=== PATIENT | female | born 1965 | race Caucasian/White ===

== ENCOUNTER 2020-01-29 07:25 | Emergency (ER) | payer BC ==
[~2020-01-29] VITALS: Ht 157 cm; Wt 109.0 kg
[2020-01-29 07:30] VITALS: BP 163/76
[2020-01-29] MEDS ORDERED: HYDROcodone/APAP 5 MG/325 MG (LORTAB) TAB PO ONE (08:00)
--- NOTE | 2020-01-29 08:15 | ED Lower Extremity ---
General Chief Complaint: Lower Extremity Stated Complaint: L KNEE PAIN Nursing Triage Note: PT CO OF L KNEE PAIN, STATES FELT KNEE POP YESTERDAY WHEN PULLING DOWN GARAGE DOOR RATES PAIN 07/10 Nursing Sepsis Screen: No Definite Risk Source: patient Exam Limitations: no limitations History of Present Illness Date Seen by Provider: Jan 29, 2020 Time Seen by Provider: 07:33 Initial Comments This 54-year-old woman presents to the emergency room by private vehicle with complaints of pain from the knee down through her left lower leg for about 2 weeks. She has had some mild swelling and erythema associated with it. Last night she was pulling down her garage door when she felt a sudden pop in the knee followed by intense pain. She has had difficulty with ambulation since. Just reports recent pain and catching or giving out with ambulation. She denies any prior injury to that leg. She took aspirin and Tylenol early this morning. Allergies and Home Medications Allergies Coded Allergies: No Known Drug Allergies (Unverified , 04/15/14) Home Medications Hydrocodone/Acetaminophen 1 Each Tablet, 1 EACH PO Q4H PRN for PAIN-MODERATE (5- 7) Prescribed by: DEANGELO GROVES on 01/29/20 0836 Patient Home Medication List Home Medication List Reviewed: Yes Review of Systems Constitutional: no symptoms reported EENTM: no symptoms reported Respiratory: no symptoms reported Cardiovascular: no symptoms reported Gastrointestinal: no symptoms reported Genitourinary: no symptoms reported : No Musculoskeletal: see HPI Skin: see HPI Psychiatric/Neurological: No Symptoms Reported Past Gbdepsz-Ciuiiu-Jlbsay Hx Past Med/Social Hx: Reviewed Nursing Past Med/Soc Hx Patient Social History Alcohol Use: Rarely Uses Recreational Drug Use: No Smoking Status: Former Smoker Recent Foreign Travel: No Contact w/Someone Who Travel: No Recent Infectious Disease Expo: No Recent Hopitalizations: No Past Medical History Surgeries: Yes Thyroidectomy Respiratory: No Cardiac: No Neurological: No : No Genitourinary: No Gastrointestinal: No Musculoskeletal: No Endocrine: No HEENT: No Cancer: No Psychosocial: No Integumentary: No Physical Exam Vital Signs Vital Signs - First Documented 01/29/20 07:30 Temp 36.9 Pulse 78 Resp 18 B/P (MAP) 163/76 (105) Pulse Ox 99 Capillary Refill : Less Than 3 Seconds Height, Weight, BMI Height: '" Weight: lbs. oz. kg; 44.00 BMI Method: General Appearance: WD/WN, mild distress HEENT: normal ENT inspection Neck: normal inspection Cardiovascular: regular rate, rhythm, no murmur Respiratory: lungs clear, normal breath sounds, no respiratory distress Legs: left leg pain, left leg soft tissue tenderness (left calf), left leg other (mild erythema of the left lower extremity) Knees: left knee pain, left knee swelling, left knee other (pain with range of motion. Mild effusion.) Ankles: left ankle non-tender, left ankle normal inspection, left ankle normal range of motion, left ankle no evidence of injury Feet: left foot non-tender, left foot normal inspection, left foot normal range of motion, left foot no evidence of injury, left foot other (strong pedal pulse) Neurologic/Tendon: normal sensation, normal motor functions Neurologic/Psychiatric: moveman II-XII nml as tested, no motor/sensory deficits, alert, normal mood/affect, oriented x 3 Skin: warm/dry, other (minimal erythema to the left lower leg) Progress/Results/Core Measures Results/Orders My Orders Orders - DEANGELO LAU MD Hydrocodone/Apap 5/325 Tablet (Lortab 5 (01/29/20 08:00) Knee, Left, 3 Views (01/29/20 07:47) Us Venous Lower Ext Lt (01/29/20 07:47) Medications Given in ED Current Medications Medications Dose Ordered Sig/Milad Route Start Time Stop Time Status Last Admin Dose Admin Acetaminophen/ Hydrocodone Bitart 1 tab ONCE ONCE PO 01/29/20 08:00 01/29/20 08:01 DC 01/29/20 07:52 1 TAB Vital Signs/I&O 01/29/20 07:30 Temp 36.9 Pulse 78 Resp 18 B/P (MAP) 163/76 (105) Pulse Ox 99 Blood Pressure Mean: 105 Diagnostic Imaging Diagonstic Imaging: Xray Plain Films/CT/US/NM/MRI: knee Comments Left knee x-ray viewed by me and report reviewed. See report below: NAME: JESSICA BROWN [facility] REC#: [id number] PT STATUS: REG ER : 1965 PHYSICIAN: DEANGELO LAU MD ADMIT DATE: 01/29/20/ER Draft Date of Exam:01/29/20 KNEE, LEFT, 3 VIEWS HISTORY: Pain in left knee. [place] a popping sensation. TECHNIQUE: 3 views of the left knee. COMPARISON: None FINDINGS: No acute fracture or dislocation is seen in the left knee. Alignment appears normal. There is minimal joint space loss in the left knee. There is a small left knee joint effusion. IMPRESSION: 1.. Small left knee joint effusion with no acute fracture seen. If there is clinical concern for internal derangement consider nonemergent MRI for further evaluation. Dictated on workstation # [id number] Dict: 01/29/20817 Trans: 01/29/20819 CV [id number] Interpreted by: BETH CAMARILLO MD Departure Impression Primary Impression: Left knee pain Qualified Codes: M25.562 - Pain in left knee Additional Impression: Effusion, left knee Disposition: 01 HOME, SELF-CARE Condition: Improved Departure-Patient Inst. Decision time for Depature: 08:31 Referrals: SIMRAN ROME DO (PCP/Family) Primary Care Physician SERINA MORELAND MD, MICHAEL P MD Patient Instructions: How to Use Crutches, Knee Pain, Meniscal Tear Add. Discharge Instructions: You may continue using a knee brace and/or an Earnest wrap for compression and support. You may use crutches as needed if pain does not allow walking. Follow-up with your primary care provider and/or an orthopedic doctor as soon as possible. A list of orthopedic providers as below. Further evaluation of your knee with MRI may be necessary for specific diagnosis. Elevation, compression, and 20 minute intervals of icing it may help reduce pain and swelling. You may use ibuprofen up to 600 mg every 6 hours as needed for pain. Add hydrocodone for pain not controlled by ibuprofen. Take ibuprofen with food or milk to avoid stomach irritation. Return to care if you have worsening symptoms despite following these recommendations. All discharge instructions reviewed with patient and/or family. Voiced understanding. Scripts Hydrocodone/Acetaminophen (Hydrocodone-Acetamin 5-325 mg) 1 Each Tablet 1 EACH PO Q4H PRN for PAIN-MODERATE (5-7), #20 TAB Prov: DEANGELO LAU MD 01/29/20 Work/School Note: Work Release Form Date Seen in the Emergency Department: Jan 29, 2020 Return to Work: Jan 29, 2020 Other Restrictions Listed Below: Pain may limit use of left knee. May need crutches and pain medications. Copy Copies To 1: SIMRAN ROME JOSHUA T MD Jan 29, 2020 08:15
--- NOTE | 2020-01-29 08:21 | Diagnostic Imaging Report ---
HISTORY: Pain in left knee. [place] a popping sensation. TECHNIQUE: 3 views of the left knee. COMPARISON: None FINDINGS: No acute fracture or dislocation is seen in the left knee. Alignment appears normal. There is minimal joint space loss in the left knee. There is a small left knee joint effusion. IMPRESSION: 1.. Small left knee joint effusion with no acute fracture seen. If there is clinical concern for internal derangement consider nonemergent MRI for further evaluation. Dictated by: Dictated on workstation # [id number]
[2020-01-29] MEDS ORDERED: HYDR-83 PO (08:35)
--- NOTE | 2020-01-29 09:17 | Diagnostic Imaging Report ---
PROCEDURE: US left lower extremity venous. TECHNIQUE: Multiple real-time grayscale images were obtained over the left lower extremity in various projections. Additional duplex Doppler and color Doppler images were also obtained. INDICATION: Left knee pain. FINDINGS: Color Doppler imaging shows normal blood flow throughout the venous system from the external iliac vein to the ankle. Calf compression showed normal augmentation of flow at the popliteal level. No evidence of popliteal cyst. IMPRESSION: Negative left lower extremity venous ultrasound for thrombosis. Dictated by: Dictated on workstation # [id number]
== END 2020-01-29 08:38 | disposition home or self-care (01) ==
LOC: EDUNIT# 07:25 → ER 07:26
DX: M25.562 Pain in left knee (principal); M25.469 Effusion, unspecified knee; Z87.891 Personal history of nicotine dependence
CPT/HCPCS: 73562

== ENCOUNTER 2020-06-19 14:06 | Outpatient (RCR) | payer BC ==
[2020-06-18 09:45] LABS: ABSOLUTE RETIC # 87 10e9/L (24-90); BASOPHILS % (AUTO) 1 % (0-10); EOSINOPHILS # (AUTO) 0.2 10^3/uL (0.0-0.3); EOSINOPHILS % (AUTO) 3 % (0-10); HEMATOCRIT 28 % (35-52); HEMOGLOBIN 7.7 G/DL (11.5-16.0); LYMPHOCYTES # (AUTO) 1.4 X 10^3 (1.0-4.0); LYMPHOCYTES % (AUTO) 16 % (12-44); MEAN CORPUSCULAR HEMOGLOBIN 18 PG (25-34); MEAN CORPUSCULAR HGB CONC 27 G/DL (32-36); MEAN CORPUSCULAR VOLUME 66 FL (80-99); MEAN PLATELET VOLUME 9.2 FL (7.4-10.4); MONOCYTES # (AUTO) 0.8 X 10^3 (0.0-1.0); MONOCYTES % (AUTO) 9 % (0-12); NEUTROPHILS # (AUTO) 6.3 X 10^3 (1.8-7.8); NEUTROPHILS % (AUTO) 73 % (42-75); PLATELET COUNT 360 10^3/uL (130-400); RETICULOCYTE % 2.05 % (0.50-2.40); WHITE BLOOD COUNT 8.7 10^3/uL (4.3-11.0)
[2020-06-18 10:20] LABS: ANISOCYTOSIS MODERATE; BASOPHILS % (MANUAL) 1 %; EOSINOPHILS % (MANUAL) 4 %; HYPOCHROMASIA MODERATE; LYMPHOCYTES % (MANUAL) 18 %; MICROCYTOSIS MARKED; MONOCYTES % (MANUAL) 6 %; NEUTROPHILS % (MANUAL) 71 %; POIKILOCYTOSIS SLIGHT; POLYCHROMASIA SLIGHT
[2020-06-18 10:21] LABS: STOMATOCYTES SLIGHT
[~2020-06-19 14:06] MED LIST: ACHD5005 PO
== END 2020-09-16 | disposition home or self-care (01) ==
LOC: LAB 14:06
PROVIDERS: ATTEND Family Medicine
DX: D64.9 Anemia, unspecified (principal)
CPT/HCPCS: 36415; 82274; 82728; 85007; 85027; 85045

== ENCOUNTER 2021-09-09 12:14 | Outpatient (CLI) | payer BC ==
[~2021-09-09] VITALS: Ht 167.7 cm; Wt 106.0 kg
[2021-09-09 12:00] VITALS: BP 136/73
[2021-09-09] MEDS ORDERED: NS IV 500 ML 500 ML IV ONE (12:45)
[2021-09-09] MEDS ORDERED: ACETAMINOPHEN 500 MG TAB (TYLENOL) PO ONE (12:45)
[2021-09-09] MEDS ORDERED: diphenhydrAMINE 25 MG TAB (BENADRYL) PO ONE (12:45)
[2021-09-09] MEDS ORDERED: LEVO125C4 PO (13:00)
[2021-09-09 13:32] VITALS: BP 136/73
[2021-09-09 13:52] VITALS: BP 134/69
[2021-09-09 14:07] VITALS: BP 138/64
[2021-09-09 16:30] VITALS: BP 140/64
== END 2021-09-09 16:35 ==
LOC: SDC 12:14
PROVIDERS: ATTEND Family Medicine
DX: D64.9 Anemia, unspecified (principal)
CPT/HCPCS: 36430; 86850; 86900; 86901; 86920; P9016

== ENCOUNTER 2021-09-12 09:06 | Emergency (ER) | payer BC ==
[~2021-09-12 09:06] MED LIST changes: +LEVO125C4 PO
--- NOTE | 2021-09-12 09:36 | ED General ---
General Stated Complaint: IRREGULAR LABS Source of Information: Patient Exam Limitations: No Limitations ([employer] STUDENT) History of Present Illness Date Seen by Provider: Sep 12, 2021 Time Seen by Provider: 09:25 Initial Comments Cadence is a 55 yo F with a history of asthma and thyroid cancer who presents to the ED today for anemia. Pt states she had labs drawn Sunday at Dr. Morley's office and received a call this morning saying she had low hemoglobi n and to come in and have it checked out. Pt reports some mild weakness and sob which she felt was just from working 6 days a week. Pt denies any blood in stool or urine and denies any changes to bowel or bladder. Denies fevers, chills, chest pain, syncope. ([employer]UDENT) Initial Comments Patient states she had a positive home fecal occult study. She has not had colonoscopy or EGD. (RAMANA COONEY) Allergies and Home Medications Allergies Coded Allergies: No Known Drug Allergies (Unverified , 04/15/14) Patient Home Medication List Home Medication List Reviewed: Yes (RAMANA COONEY) Levothyroxine Sodium (Levothyroxine) 125 Mcg Capsule, 125 MCG PO DAILY, (Reported) Entered as Reported by: JOSSUE STANTON on 09/09/21 1300 Discontinued Medications Hydrocodone/Acetaminophen (Hydrocodone-Acetamin 5-325 mg) 1 Each Tablet, 1 EACH PO Q4H PRN for PAIN-MODERATE (5-7) Discontinued Reason: No Longer Taking Prescribed by: DEANGELO GROVES on 01/29/20 0836 Review of Systems Review of Systems Constitutional: No chills EENTM: No blurred vision, No double vision Respiratory: No cough; short of breath Cardiovascular: No chest pain, No edema Gastrointestinal: No abdominal pain, No constipation, No diarrhea, No melena, No nausea, No vomiting Genitourinary: No dysuria, No frequency, No hematuria Musculoskeletal: No muscle stiffness, No muscle cramps Skin: No change in color, No change in hair/nails Psychiatric/Neurological: Denies Anxiety, Denies Depressed Hematologic/Lymphatic: Anemia ([employer] STUDENT) Past Gdhzxag-Hztcpx-Uwgkxg Hx Patient Social History Tobacco Use?: No Use of E-Cig and/or Vaping dev: No (RAMANA COONEY) Past Medical History Surgeries: Yes Thyroidectomy Respiratory: No Cardiac: No Neurological: No Genitourinary: No Gastrointestinal: No Musculoskeletal: No Endocrine: No HEENT: No Cancer: No Psychosocial: No Integumentary: No ([email or web address]) Physical Exam Vital Signs Vital Signs - First Documented 09/12/21 09:21 Pulse 79 Resp 20 B/P (MAP) 161/84 (109) Pulse Ox 100 O2 Delivery Room Air (RAMANA COONEY) Vital Signs Capillary Refill : ([email or web address]) Height, Weight, BMI Height: '" Weight: lbs. oz. kg; 44.00 BMI Method: ([email or web address]) General Appearance: No Apparent Distress, WD/WN, Obese Eyes: Bilateral Eye Normal Inspection, Bilateral Eye PERRL, Bilateral Eye EOMI HEENT: PERRL/EOMI, Pharynx Normal, Moist Mucous Membranes Neck: Full Range of Motion, Normal Inspection Respiratory: Lungs Clear, Normal Breath Sounds, No Accessory Muscle Use, No Respiratory Distress Cardiovascular: Regular Rate, Rhythm, No Edema, Normal Peripheral Pulses Gastrointestinal: Normal Bowel Sounds, No Organomegaly, No Pulsatile Mass, Non Tender (RAMANA COONEY) Progress/Results/Core Measures Suspected Sepsis SIRS Temperature: Pulse: Respiratory Rate: Blood Pressure / Mean: [email or web address]) Results/Orders Lab Results Laboratory Tests Test 09/12/21 09:29 Range/Units White Blood Count 8.8 4.3-11.0 10^3/uL Red Blood Count 3.28 L 3.80-5.11 10^6/uL Hemoglobin 6.1 *L 11.5-16.0 g/dL Hematocrit 23 L 35-52 % Mean Corpuscular Volume 70 L 80-99 fL Mean Corpuscular Hemoglobin 19 L 25-34 pg Mean Corpuscular Hemoglobin Concent 27 L 32-36 g/dL Red Cell Distribution Width 21.6 H 10.0-14.5 % Platelet Count 353 130-400 10^3/uL Mean Platelet Volume 9.9 9.0-12.2 fL Immature Granulocyte % (Auto) 1 % Neutrophils (%) (Auto) 72 42-75 % Lymphocytes (%) (Auto) 13 12-44 % Monocytes (%) (Auto) 11 0-12 % Eosinophils (%) (Auto) 3 0-10 % Basophils (%) (Auto) 1 0-10 % Neutrophils # (Auto) 6.3 1.8-7.8 10^3/uL Lymphocytes # (Auto) 1.1 1.0-4.0 10^3/uL Monocytes # (Auto) 0.9 0.0-1.0 10^3/uL Eosinophils # (Auto) 0.3 0.0-0.3 10^3/uL Basophils # (Auto) 0.1 0.0-0.1 10^3/uL Immature Granulocyte # (Auto) 0.1 0.0-0.1 10^3/uL Sodium Level 138 135-145 MMOL/L Potassium Level 3.8 3.6-5.0 MMOL/L Chloride Level 107 98-107 MMOL/L Carbon Dioxide Level 23 21-32 MMOL/L Anion Gap 8 5-14 MMOL/L Blood Urea Nitrogen 15 7-18 MG/DL Creatinine 0.84 0.60-1.30 MG/DL Estimat Glomerular Filtration Rate 71 BUN/Creatinine Ratio 18 Glucose Level 106 H 70-105 MG/DL Calcium Level 8.9 8.5-10.1 MG/DL Troponin I < 0.028 <0.028 NG/ML (RAMANA COONEY) My Orders Orders - RAMANA COONEY Cbc With Automated Diff (09/12/21 09:34) Basic Metabolic Panel (09/12/21 09:34) Type And Screen (09/12/21 09:34) Continuous Ekg Monitoring (09/12/21 09:34) Ekg Tracing (09/12/21 09:34) Troponin I Keshav (09/12/21 09:34) Vital Signs: Special (Order) (09/12/21 10:04) Consent-Obtain Consent For (09/12/21 10:04) Monitor S/S Transfusion Reacti (09/12/21 10:04) Red Cells Leukocytes Reduced (09/12/21 10:04) (RAMANA COONEY) Vital Signs/I&O 09/12/21 09:21 Pulse 79 Resp 20 B/P (MAP) 161/84 (109) Pulse Ox 100 O2 Delivery Room Air (RAMANA COONEY) Vital Signs/I&O Capillary Refill : ([employer] STUDENT) Progress Note : Time: 09:59 Progress Note I attest that 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 Patient is in no acute distress. EKG is normal. Plan to transfuse a unit outpatient. Referral to Dr. Stern, general surgery for appropriate endoscopy (RAMANA COONEY) ECG Initial ECG Impression Date: Sep 12, 2021 Initial ECG Impression Time: 09:47 Initial ECG Rate: 79 Initial ECG Rhythm: Normal Sinus Initial ECG Intervals: Normal Initial ECG Impression: Normal Comment Normal sinus rhythm without clinically relevant ST elevation or depression. (RAMANA COONEY) Departure Impression Primary Impression: Anemia Qualified Codes: D64.9 - Anemia, unspecified Additional Impression: Fecal occult blood test positive Disposition: 01 HOME, SELF-CARE Condition: Stable Departure-Patient Inst. Decision time for Depature: 10:03 (RAMANA COONEY) Referrals: DHRUV STERN RICHARD A DO (PCP/Family) Primary Care Physician Patient Instructions: Anemia Caused by Low Iron, Adult (DC) Add. Discharge Instructions: Call Dr. Stern's clinic and request follow-up appointment for endoscopy. Return to the ER for chest pain shortness of air. Copy Copies To 1: DHRUV STERN NATHAN MED STUDENT Sep 12, 2021 09:35 RAMANA COONEY Sep 12, 2021 09:58
[2021-09-12 09:39] LABS: BASOPHILS # (AUTO) 0.1 10^3/uL (0.0-0.1); BASOPHILS % (AUTO) 1 % (0-10); EOSINOPHILS # (AUTO) 0.3 10^3/uL (0.0-0.3); EOSINOPHILS % (AUTO) 3 % (0-10); HEMATOCRIT 23 % (35-52); LYMPHOCYTES # (AUTO) 1.1 10^3/uL (1.0-4.0); LYMPHOCYTES % (AUTO) 13 % (12-44); MEAN CORPUSCULAR HEMOGLOBIN 19 pg (25-34); MEAN CORPUSCULAR HGB CONC 27 g/dL (32-36); MEAN CORPUSCULAR VOLUME 70 fL (80-99); MEAN PLATELET VOLUME 9.9 fL (9.0-12.2); MONOCYTES # (AUTO) 0.9 10^3/uL (0.0-1.0); MONOCYTES % (AUTO) 11 % (0-12); NEUTROPHILS # (AUTO) 6.3 10^3/uL (1.8-7.8); NEUTROPHILS % (AUTO) 72 % (42-75); PLATELET COUNT 353 10^3/uL (130-400); WHITE BLOOD COUNT 8.8 10^3/uL (4.3-11.0)
[2021-09-12 09:43] LABS: HEMOGLOBIN 6.1 g/dL (11.5-16.0)
[2021-09-12 09:45] LABS: CHLORIDE 107 MMOL/L (98-107); POTASSIUM 3.8 MMOL/L (3.6-5.0); SODIUM 138 MMOL/L (135-145)
[2021-09-12 09:46] LABS: CALCIUM 8.9 MG/DL (8.5-10.1)
[2021-09-12 09:47] LABS: GLUCOSE 106 MG/DL (70-105)
[2021-09-12 09:48] LABS: CARBON DIOXIDE 23 MMOL/L (21-32)
[2021-09-12 09:51] LABS: CREATININE SERUM 0.84 MG/DL (0.60-1.30); GFR ESTIMATED 71
[2021-09-12 09:52] LABS: BUN/CREATININE RATIO 18
[2021-09-12 10:18] VITALS: BP 135/68
== END 2021-09-12 10:18 | disposition home or self-care (01) ==
LOC: EDUNIT# 09:06 → ER 09:07
DX: D64.9 Anemia, unspecified (principal); R19.5 Other fecal abnormalities; E66.9 Obesity, unspecified; Z68.41 Body mass index [BMI] 40.0-44.9, adult
CPT/HCPCS: 80048; 84484; 85025; 86850; 86900; 86901; 86920; 93005; 99283; P9016; 36415

== ENCOUNTER 2021-09-12 10:27 | Outpatient (CLI) | payer BC ==
[2021-09-12 10:40] VITALS: BP 177/75
[2021-09-12] MEDS ORDERED: NS IV 500 ML 500 ML IV ONE (10:45)
== END 2021-09-12 13:48 ==
LOC: SDC 10:27
PROVIDERS: ATTEND Emergency Medicine
DX: D64.9 Anemia, unspecified (principal)
CPT/HCPCS: 36430